=== PATIENT | female | born 1975 | race Caucasian/White ===

== ENCOUNTER 2023-10-17 13:39 | Emergency (ER) | payer BC ==
[2023-10-17] MEDS ORDERED: Ondansetron PF 4 MG/2 ML Vial ONE (14:04)
[2023-10-17] MEDS ORDERED: Ketorolac Tromethamine 30 MG (1 mL) VIAL ONE (14:13)
[2023-10-17] MEDS ORDERED: diphenhydrAMINE 50 MG/ML VIAL ONE (14:13)
[2023-10-17] MEDS ORDERED: Prochlorperazine 10 MG/2 ML VIAL ONE (14:13)
[2023-10-17 14:38] LABS: #Monocytes 0.3 thou/uL (0.11-0.59); #Neutrophils 6.7 thou/uL (1.40-6.50); %Basophils 0.5 % (0.0-1.0); %Eosinophils 0.1 % (0.0-10.0); %Monocytes 3.7 % (0.0-10.0); %Neutrophils 85.2 % (42.0-75.0); Hematocrit 41.7 % (36.0-47.0); Hemoglobin 14.7 g/dL (12.0-16.0); Mean Corpuscular HGB CONC 35.3 g/dL (32.0-36.0); Mean Corpuscular Volume 90.8 fl (78.0-98.0); Mean Platelet Volume 9.8 fL (7.4-10.4); Platelet Count 316 10x3/uL (130-400); RBC Distribution Width 12.4 % (11.5-14.5); Red Blood Cell (RBC) Count 4.59 mill/uL (4.20-5.40); White Blood Cell (WBC) Count 7.9 10x3/uL (4.8-10.8)
[2023-10-17 14:55] LABS: ALT (SGPT) 31 U/L (8-55); AST (SGOT) 30 U/L (5-34); Albumin 3.9 g/dL (3.5-5.0); Alkaline Phosphatase 85 U/L (40-110); Anion Gap 18 mmol/L (10-20); BUN (Urea Nitrogen) 14 mg/dL (7.0-18.7); Bilirubin, Total 0.5 mg/dL (0.2-1.2); Calc. Creatinine Clearance 0 mL/min (70-130); Calcium 9.2 mg/dL (7.8-10.44); Carbon Dioxide 21 mmol/L (22-29); Chloride 102 mmol/L (98-107); Estimated GFR 93; Globulin 3.1 g/dL (2.4-3.5); Glucose 122 mg/dL (70-105); Lipase 15 U/L (8-78); Potassium 4.1 mmol/L (3.5-5.1); Sodium 137 mmol/L (136-145)
[2023-10-17 15:03] LABS: BHCG - Serum Negative (NEGATIVE); Pregs Control Background? CLEAR/WHITE (CLR/WHITE); Pregs Control Bar Appear? YES (CONTROL BAR)
== END 2023-10-17 15:45 | disposition home or self-care (01) ==
LOC: ERS 13:39
DX: G43.909 Migraine, unspecified, not intractable, without status migrainosus (principal); I10 Essential (primary) hypertension; Z79.899 Other long term (current) drug therapy
CPT/HCPCS: 70450; 80053; 83690; 84703; 85025; 96361; 96374; 96375; J0780; J1200; J1885; J2405